=== PATIENT | female | born 1980 | race Caucasian/White ===

== ENCOUNTER 2017-02-19 08:35 | Outpatient (CLI) | payer BC ==
--- NOTE | 2017-02-19 11:08 | XRAY Report ---
THREE-VIEW LUMBAR SPINE: 02/19/2017 CLINICAL INDICATION: Back pain. FINDINGS: AP, lateral, coned-down views of the lumbar spine demonstrate normal height and alignment of the vertebral bodies. The disk spaces are preserved. No fracture or subluxation is present. The bowel gas pattern appears unremarkable. IMPRESSION: NORMAL LUMBAR SPINE. JOB #: [id number] EXT JOB #:[id number]
== END 2017-02-19 08:36 | disposition home or self-care (01) ==
LOC: DI.S 08:35
PROVIDERS: ATTEND Naturopath
DX: M54.5 Low back pain (principal)
CPT/HCPCS: 72100